=== PATIENT | female | born 1950 | race Caucasian/White ===

== ENCOUNTER 2024-06-15 10:00 | Day surgery (SDC) | payer MEDICARE, SELFPAY ==
[2024-06-12 12:53] VITALS: BMI 22.1
[2024-06-15] VITALS (9 sets, daily range): BP systolic 105–196; BP diastolic 55–101; PULSE 58–92; RESP 14–22; TEMP 36.1–36.7; O2SAT 92–100; BMI 22.3
[2024-06-15] MEDS: MIDAZOLAM INJ 1 MG/ML VIAL 2 ML (ASD USE ONLY) 2 MG IV (13:14)
[2024-06-15] MEDS: fentaNYL CIT INJ 50 mCg/ML AMP 2ML (ASD USE ONLY) IV (13:14)
[2024-06-15] MEDS: SODIUM CHLORIDE 0.9% 500 ML 500 ML 20 ML IV (13:14)
[2024-06-15] MEDS: DiphenhydrAMINE INJ 50 MG/ML VIAL 25 MG IV (13:14)
== END 2024-06-15 13:58 | disposition home or self-care (01) ==
PROVIDERS: PCP Family Medicine; Referring Provider Specialist; Visit Provider Specialist
PROC: (CPT 43239; principal; 2024-06-15 11:45)
DX: K22.2 Esophageal obstruction (principal); K29.70 Gastritis, unspecified, without bleeding
CPT/HCPCS: 43248; 43239; A4649; C1769; J1200; J2250; J3010; J7040

== ENCOUNTER → 2024-11-18 | Outpatient (CLI) | payer MEDICARE, SELFPAY ==
[2024-11-18 10:11] LABS: Basophils # (Auto) 0.0 Thou/mm3 (0.0-0.2); Basophils % (Auto) 0 % (0-2.5); Eosinophils # (Auto) 0.0 Thou/mm3 (0.0-0.5); Eosinophils % (Auto) 0 % (0-10); Hematocrit 45.5 % (36.0-46.0); Hemoglobin 14.5 g/dL (12.0-16.0); Immature Granulocytes Auto 0.04 Thou/mm3 (0.00-0.00); Lymphocytes # (Auto) 1.3 Thou/mm3 (1.0-4.8); Lymphocytes % (Auto) 20 % (10-50); Mean Corpuscular HGB Conc 31.9 g/dl (31.0-37.0); Mean Corpuscular Hemoglobin 27.6 pg (25.0-35.0); Mean Corpuscular Volume 87 fL (80-100); Monocytes # (Auto) 0.4 Thou/mm3 (0.0-0.8); Monocytes % (Auto) 6 % (0-12); Neutrophils # (Auto) 5.0 Thou/mm3 (1.8-7.7); Neutrophils % (Auto) 73 % (37-80); Nucleated Red Blood Cell # 0.00 Thou/mm3 (0.00-0.00); Nucleated Red Blood Cell % 0 /100 WBC (0); Platelet Count 231 Thou/mm3 (140-440); RDW Standard Deviation 48.8 fL (36.4-46.3); Red Blood Count 5.26 Miln/mm3 (4.00-5.20); White Blood Count 6.8 Thou/mm3 (3.6-11.0)
[2024-11-18 10:33] LABS: Alanine Aminotransferase 13 U/L (10-49); Albumin, Serum 4.5 gm/dL (3.4-4.8); Albumin/Globulin Ratio 2.1 (1.2-2.2); Alkaline Phosphatase 76 U/L (46-116); Anion Gap 8 (7-16); Aspartate Amino Transferase 22 U/L (0-34); BUN/Creatinine Ratio 22 Ratio (12-20); Bilirubin,Total 0.5 mg/dL (0.3-1.2); Blood Urea Nitrogen 13 mg/dL (9-23); Calcium 10.5 mg/dL (8.3-10.6); Calcium (Corrected) 10.5 mg/dL (8.5-10.1); Carbon Dioxide 29.8 mMol/L (20.0-31.0); Cardiac Risk Estimate 3.3 RATIO (3.7-5.6); Chloride 104 mMol/L (98-107); Cholesterol 198 mg/dL (132-200); Creatinine (Component) 0.6 mg/dL (0.6-1.3); Globulin 2.1 gm/dL (2.3-3.5); Glucose 110 mg/dL (74-106); HDL Cholesterol 60 mg/dL (40-60); LDL Cholesterol,Calculated 115 mg/dL (0-130); Magnesium 1.9 mg/dL (1.6-2.6); Osmolality,Calculated 284 (275-295); Potassium 4.8 mMol/L (3.4-5.1); Sodium 142 mMol/L (136-145); Total Protein 6.6 gm/dL (5.7-8.2); Triglycerides 115 mg/dL (30-150); eGFR > 60 See Note
[2024-11-18 10:36] LABS: Vitamin B12 905 pg/mL (211-911)
== END | disposition home or self-care (01) ==
LOC: COPL 09:37
PROVIDERS: PCP Family Medicine; Referring Provider Family Medicine; Visit Provider Family Medicine
DX: I10 Essential (primary) hypertension (principal); R13.14 Dysphagia, pharyngoesophageal phase; K21.9 Gastro-esophageal reflux disease without esophagitis
CPT/HCPCS: 36415; 80053; 80061; 82607; 83735; 85025

== ENCOUNTER 2024-12-02 10:30 | Day surgery (SDC) | payer MEDICARE, SELFPAY ==
[2024-12-01 13:03] VITALS: BMI 21.9
[2024-12-02] VITALS (10 sets, daily range): BP systolic 131–187; BP diastolic 72–103; PULSE 74–100; RESP 12–24; TEMP 36.4–36.6; O2SAT 96–100; BMI 21.9
[2024-12-02] MEDS: SODIUM CHLORIDE 0.9% 500 ML 500 ML 20 ML IV (12:05)
[2024-12-02] MEDS: BENZOCAINE 20% (Hurricaine) SPRAY 1 DOSE TOP (12:05)
[2024-12-02] MEDS: MIDAZOLAM INJ 1 MG/ML VIAL 2 ML (ASD USE ONLY) 2 MG IVP (12:08)
[2024-12-02] MEDS: fentaNYL CIT INJ 50 mCg/ML AMP 2ML (ASD USE ONLY) IVP (12:08)
== END 2024-12-02 13:00 | disposition home or self-care (01) ==
PROVIDERS: PCP Family Medicine; Referring Provider Specialist; Visit Provider Specialist
PROC: (CPT 43239; principal; 2024-12-02 11:30)
DX: K22.2 Esophageal obstruction (principal); K22.10 Ulcer of esophagus without bleeding; K29.70 Gastritis, unspecified, without bleeding; I10 Essential (primary) hypertension; Z79.899 Other long term (current) drug therapy
CPT/HCPCS: 43248; A4649; C1769; J1200; J2250; J3010; J7999; A9270